=== PATIENT | male | born 1955 | race Caucasian/White ===

== ENCOUNTER 2019-02-14 20:46 | Emergency (ER) | payer OTHER, SELFPAY ==
[2019-02-14] MEDS ORDERED: ACETAMINOPHEN 500 MG TAB ONE (21:41)
[2019-02-14] MEDS ORDERED: IBUPROFEN 400 MG TAB ONE (21:41)
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
== END 2019-02-14 22:46 | disposition home or self-care (01) ==
LOC: ER 20:46
DX: M25.512 Pain in left shoulder (principal); M54.5 Low back pain; V49.40XA Driver injured in collision with unspecified motor vehicles in traffic accident, initial encounter; J44.9 Chronic obstructive pulmonary disease, unspecified; I25.2 Old myocardial infarction; Z88.6 Allergy status to analgesic agent; F17.210 Nicotine dependence, cigarettes, uncomplicated
CPT/HCPCS: 72100; 99284

== ENCOUNTER 2024-01-10 06:15 | Day surgery (SDC) | payer BC, OTHER ==
[2024-01-09 12:08] LABS: Absolute Eosinophils 0.2 K/uL (0-0.5); Absolute Lymphocytes (CBC) 2.6 K/uL (0.7-4.9); Absolute Monocytes 0.7 K/uL (0.1-1.3); Absolute Neutrophil 6.2 K/uL (1.8-8.0); Basophils % 0.4 % (0-1.3); Eosinophils % 2.1 % (0-4.4); Hemoglobin 13.7 g/dL (13.6-17.9); Lymphocytes % 26.9 % (15.3-44.8); MCHC 32.7 g/dL (32.0-36.0); MCV 91.8 fL (80-100); MPV 7.7 fL (7.6-11.3); Monocytes % 7.2 % (3.3-12.3); Neutrophils % 63.4 % (41.7-73.7); Platelets 281 thou/uL (152-406); RBC Red Blood Cell Count 4.58 M/uL (4.33-5.43); Red Cell Distribution Width 14.5 % (12.1-15.2)
[2024-01-09 12:11] LABS: PT Prothrombin Time 11.2 SECONDS (9.5-12.5); Protime INR 1.02
[2024-01-09 12:15] LABS: Anion Gap 8.2 mEq/L (5.0-15.0); Potassium 4.2 mEq/L (3.5-5.1)
[2024-01-10] MEDS ORDERED: LIDOCAINE 1% MPF 30 ML VIAL ONE (07:08)
[2024-01-10] MEDS ORDERED: propofoL 200 MG/20 ML VIAL IV ONE (07:08)
[2024-01-10] MEDS: NA CHLORIDE 0.9% 1,000 ML ONE (07:30)
[2024-01-10 09:21] VITALS: BP 97/67; TEMP 97; O2SAT 97
== END 2024-01-10 08:36 | disposition home or self-care (01) ==
LOC: OR 06:15
PROVIDERS: ATTEND Surgery
PROC: 0DJD8ZZ Inspection of Lower Intestinal Tract, Via Natural or Artificial Opening Endoscopic (ICD-10-PCS; principal; 2024-01-10 07:30)
DX: Z12.11 Encounter for screening for malignant neoplasm of colon (principal); K64.8 Other hemorrhoids; K57.30 Diverticulosis of large intestine without perforation or abscess without bleeding; Z86.73 Personal history of transient ischemic attack (TIA), and cerebral infarction without residual deficits
CPT/HCPCS: 93005; 85025; 80048; 36415; 85610; 82947; 85730; J2704; J2001; J7030; G0121